=== PATIENT | male | born 1965 | race Caucasian/White ===

== ENCOUNTER 2017-04-15 14:23 | Day surgery (SDC) | payer BC ==
[~2017-04-15 14:23] MED LIST: CATAPRES0.2 MG PO; CELEXA10 MG PO; CITALOPRAM PO; CLONAZEPAM PO; CLONAZEPAM0.5 MG PO; HYDROCODON-ACE1 EAC7 PO; NEURONTIN300 MG PO; PRAVACHOL20 MG PO
[2017-04-15] MEDS ORDERED: MELOXICAM15 MG PO (14:38)
[2017-04-15] MEDS ORDERED: BUSPAR10 MG PO (14:38)
[2017-04-15] MEDS ORDERED: COZAAR50 MG PO (14:39)
[2017-04-15] MEDS ORDERED: NIFEDIPINE ER90 MG PO (14:40)
[2017-04-15] MEDS ORDERED: ESCITALOPRAM OX20 MG PO (14:40)
== END 2017-04-15 15:49 | disposition home or self-care (01) ==
LOC: PAIN 14:23 → SDC 15:00 → PAIN 15:49
DX: M47.26 Other spondylosis with radiculopathy, lumbar region (principal); M51.16 Intervertebral disc disorders with radiculopathy, lumbar region; M54.5 Low back pain; G89.29 Other chronic pain; M48.061 Spinal stenosis, lumbar region without neurogenic claudication; M25.78 Osteophyte, vertebrae; I10 Essential (primary) hypertension; E78.5 Hyperlipidemia, unspecified; F41.9 Anxiety disorder, unspecified; F17.200 Nicotine dependence, unspecified, uncomplicated; Z79.891 Long term (current) use of opiate analgesic
CPT/HCPCS: J1030; J2250; J3010; S0020

== ENCOUNTER 2017-04-22 12:23 | Day surgery (SDC) | payer BC ==
[~2017-04-22] VITALS: Ht 180.3 cm; Wt 86.2 kg
[~2017-04-22 12:23] MED LIST changes: +BUSPAR10 MG PO; +COZAAR50 MG PO; +ESCITALOPRAM OX20 MG PO; +MELOXICAM15 MG PO; +NIFEDIPINE ER90 MG PO
== END 2017-04-22 14:10 | disposition home or self-care (01) ==
LOC: PAIN 12:23 → SDC 13:00 → PAIN 14:10
DX: M47.26 Other spondylosis with radiculopathy, lumbar region (principal); M51.16 Intervertebral disc disorders with radiculopathy, lumbar region; M48.061 Spinal stenosis, lumbar region without neurogenic claudication; M25.78 Osteophyte, vertebrae; E78.5 Hyperlipidemia, unspecified; I10 Essential (primary) hypertension; F17.200 Nicotine dependence, unspecified, uncomplicated
CPT/HCPCS: J1030; J2250; J3010; S0020

== ENCOUNTER 2017-06-20 13:31 | Day surgery (SDC) | payer BC ==
[~2017-06-20] VITALS: Ht 180.3 cm; Wt 86.2 kg
[~2017-06-20 13:31] MED LIST changes: +CRESTOR20 MG PO; -ESCITALOPRAM OX20 MG PO; +LEXAPRO20 MG PO; -PRAVACHOL20 MG PO
== END 2017-06-20 15:22 | disposition home or self-care (01) ==
LOC: PAIN 13:31 → SDC 14:30 → PAIN 14:30
DX: M47.816 Spondylosis without myelopathy or radiculopathy, lumbar region (principal); M51.16 Intervertebral disc disorders with radiculopathy, lumbar region; M48.061 Spinal stenosis, lumbar region without neurogenic claudication; I10 Essential (primary) hypertension; E78.5 Hyperlipidemia, unspecified; F41.9 Anxiety disorder, unspecified; G89.29 Other chronic pain; F17.210 Nicotine dependence, cigarettes, uncomplicated; Z79.891 Long term (current) use of opiate analgesic
CPT/HCPCS: J1030; J2250; J3010; S0020

== ENCOUNTER 2017-06-27 13:00 | Day surgery (SDC) | payer BC ==
[~2017-06-27] VITALS: Ht 180.3 cm; Wt 86.2 kg
== END 2017-06-27 14:54 | disposition home or self-care (01) ==
LOC: PAIN 13:00 → SDC 14:30 → PAIN 14:54
DX: M47.816 Spondylosis without myelopathy or radiculopathy, lumbar region (principal); M51.16 Intervertebral disc disorders with radiculopathy, lumbar region; F41.1 Generalized anxiety disorder; I10 Essential (primary) hypertension; E78.5 Hyperlipidemia, unspecified; M48.061 Spinal stenosis, lumbar region without neurogenic claudication; F17.210 Nicotine dependence, cigarettes, uncomplicated; Z79.891 Long term (current) use of opiate analgesic
CPT/HCPCS: J1030; J2250; J3010; S0020